=== PATIENT | female | born 1975 | race Caucasian/White ===

== ENCOUNTER 2017-06-28 08:13 | Day surgery (SDC) | payer BC ==
[~2017-06-28 08:13] MED LIST: Lactated Ringers 1,000 ML IV SCH; Lidocaine 1%/Sod Bicarbonate in NS 8.4% 1 ML Syringe IV PRN; Sodium Chloride 0.9% 10 ML Syringe FLUSH PRN
[2017-06-28] MEDS ORDERED: Ondansetron 4 MG/2 ML SDV ONE (08:36)
[2017-06-28] MEDS ORDERED: Midazolam 1 MG/ML 2 ML SDV ONE (08:36)
[2017-06-28] MEDS ORDERED: Propofol 200 MG/20 ML SDV ONE (08:36)
[2017-06-28] MEDS ORDERED: fentaNYL 250 MCG/5 ML SDV ONE (08:36)
[2017-06-28] MEDS ORDERED: ceFAZolin 1 GM Vial ONE (08:36)
[2017-06-28] MEDS ORDERED: Lidocaine 1% 4 ML ONE (08:37)
--- NOTE | 2017-06-28 08:45 | PCM.PREANE ---
Preanesthetic Assessment - Anesthesia/Transfusion/Family Hx Anesthesia History: Prior Anesthesia Without Reaction Family History of Anesthesia Reaction: No Transfusion History: No Prior Transfusion(s) - Review of Systems General: No Symptoms Pulmonary: No Symptoms Cardiovascular: No Symptoms Gastrointestinal: Abdominal Pain, Constipation Neurological: No Symptoms Other: Reports: None - Physical Assessment NPO Status Date: 06/27/17 NPO Status Time: 00:00 Pulse: 70 O2 Sat by Pulse Oximetry: 97 Respiratory Rate: 16 Blood Pressure: 120/85 Temperature: 36.5 C Height: 86.1 cm ASA Class: 2 Mental Status: Alert & Oriented x3 Dentition: Reports: Implants (TOP LEFT) Thyro-Mental Finger Breadths: 3 Mouth Opening Finger Breadths: 3 ROM/Head Extension: Full Lungs: Clear to Auscultation, Normal Respiratory Effort Cardiovascular: Regular Rate, Regular Rhythm, No Murmurs - Allergies Allergies/Adverse Reactions: Allergies Allergy/AdvReac Type Severity Reaction Status Date / Time No Known Allergies Allergy Verified 06/27/17 13:42 - Blood Blood Available: No Product(s) Available: None - Anesthesia Plan Pre-Op Medication Ordered: None - Acknowledgements Anesthesia Type Planned: General Anesthesia Pt an Appropriate Candidate for the Planned Anesthesia: Yes Alternatives and Risks of Anesthesia Discussed w Pt/Guardian: Yes Pt/Guardian Understands and Agrees with Anesthesia Plan: Yes PreAnesthesia Questionnaire HEENT History: Reports: Other (See Below) Other HEENT History: paranasal sinus congestion, dental implants, wears glasses Cardiovascular History: Reports: None Respiratory History: Reports: None Gastrointestinal History: Genitourinary History: Reports: None [employer] History: Reports: Other (See Below) Other OB/BYN History: irrregular heavy menses, vaginitis, vulvovaginitis Musculoskeletal History: Reports: None Neurological History: Reports: None Psychiatric History: Reports: Depression, Other (See Below) Other Psychiatric History: fatigue Endocrine/Metabolic History: Reports: None Hematologic History: Reports: None Immunologic History: Reports: None Oncologic (Cancer) History: Reports: None Dermatologic History: Reports: None - Past Surgical History Head Surgeries/Procedures: Reports: None HEENT Surgical History: Reports: Myringotomy w Tube(s), Oral Surgery, Tonsillectomy Cardiovascular Surgical History: Reports: None Respiratory Surgical History: Reports: None GI Surgical History: Reports: Bariatric Procedure, Cholecystectomy Female Surgical History: Reports: Tubal Ligation Male Surgical History: Reports: None Endocrine Surgical History: Reports: None Neurological Surgical History: Reports: None Musculoskeletal Surgical History: Reports: None Oncologic Surgical History: Reports: None Dermatological Surgical History: Reports: None - SUBSTANCE USE Smoking Status *Q: Current Every Day Smoker Days Per Week of Alcohol Use: 3 Number of Drinks Per Day: 2 Total Drinks Per Week: 6 Recreational Drug Use History: No - HOME MEDS Home Medications: Home Meds Ascorbic Acid [Vitamin C] 1,000 mg PO DAILY 06/27/17 [History] Multivitamin [Multi-Vitamin Daily] 1 tab PO DAILY 06/27/17 [History] - CURRENT (IN HOUSE) MEDS Current Meds: Current Medications Lactated Ringer's (Ringers, Lactated) 1,000 mls @ 125 mls/hr IV ASDIRECTED OPHELIA Stop: 06/28/17 23:00 Lidocaine/Sodium Bicarbonate (Buffered Lidocaine 1% In Ns 8.4%) 0.25 ml IV ONETIME PRN PRN Reason: Prior to IV Start Stop: 06/28/17 18:00 Sodium Chloride (Saline Flush) 10 ml FLUSH ASDIRECTED PRN PRN Reason: Keep Vein Open Stop: 06/28/17 18:00 Discontinued Medications Cefazolin Sodium (Ancef) Confirm Administered Dose 2 gm .ROUTE .STK-MED ONE Stop: 06/28/17 08:37 Fentanyl (Sublimaze) Confirm Administered Dose 250 mcg .ROUTE .STK-MED ONE Stop: 06/28/17 08:37 Lidocaine HCl (Xylocaine-Mpf 1%) Confirm Administered Dose 4 mls @ as directed .ROUTE .STK-MED ONE Stop: 06/28/17 08:38 Midazolam HCl (Versed 1 Mg/Ml) Confirm Administered Dose 2 mg .ROUTE .STK-MED ONE Stop: 06/28/17 08:37 Ondansetron HCl (Zofran) Confirm Administered Dose 4 mg .ROUTE .STK-MED ONE Stop: 06/28/17 08:37 Propofol (Diprivan 20 Ml) Confirm Administered Dose 200 mg .ROUTE .STK-MED ONE Stop: 06/28/17 08:37
--- NOTE | 2017-06-28 08:57 | PCM.OPNOTE ---
- General Post-Op/Procedure Note Date of Surgery/Procedure: 06/28/17 Operative Procedure(s): Dilatation and curettage and hysteroscopy 70222 Pre Op Diagnosis: Excessive irregular menstrual periods, heavy menses Post-Op Diagnosis: Same Anesthesia Technique: General ET Tube Primary Surgeon: Oseas Viramontes Anesthesia Provider: Vernon Potts Fluid Replacement, Intraop: 1,200 EBL in mLs: 5 Drain/Tube Comments:: None Complications: None Condition: Good Free Text/Narrative:: Patient taken to OR #3 and placed under general anesthesia with endotrachael intubation. SCD's in place and functioning, Ancef 2 grams IV preop. Prepared and draped in sterile fashion. Timeout performed, confirming name, , and procedure as D&C and Hysteroscopy. EUA normal anterior uterus. No adnexal masses. Uterus sounded to 8.5 cm, dilated to accomidate the hysteroscope. Endoscopy revealed no polyps. Both left and right tubal ostia were visualized. There was a significant amount of tissue endometrial cavity. Curettage performed all tissue sent to pathology for tissue evaluation patient received Toradol 30 mg IV. Patient transported postanesthesia care unit in satisfactory conditions the sponge counts were correct. One set of images taken 10 images total: Image 001 the right cornua and area of the tubal ostium Image 002 shows the left cornua but blurred due to blood in the saline Image 003 shows the right tubal ostia better view image 004 shows right tubal ostia Image 005 shows the fundus of the endometrial cavity Image 006 shows the right cornua after D&C Image 007 shows the left cornual area with significant amount of tissue is persisting Image 008 shows the left cornual area after curettage and removal of the additional tissue Image 009 shows the area of the right tubal ostia and cornea Image 010 shows the left tubal ostia and cornua
[2017-06-28] MEDS ORDERED: Ketorolac 30 MG/ML SDV ONE (09:12)
[2017-06-28] MEDS ORDERED: Lactated Ringers 1,000 ML ONE (09:38)
[2017-06-28] MEDS ORDERED: fentaNYL 100 MCG/2 ML SDV IVPUSH PRN (10:04)
[2017-06-28] MEDS ORDERED: HYDROmorphone 0.5 MG/0.5 ML Syringe IVPUSH PRN (10:04)
--- NOTE | 2017-06-28 10:06 | PCM.POSTAN ---
POST ANESTHESIA ASSESSMENT - MENTAL STATUS Mental Status: Alert, Oriented - VITAL SIGNS Pulse Rate: 75 SaO2: 95 Resp Rate: 12 Blood Pressure: 117/78 Temperature: 36.9 C - RESPIRATORY Respiratory Status: Respiratory Rate WNL, Airway Patent, O2 Saturation Stable, Supplemental Oxygen - CARDIOVASCULAR CV Status: Pulse Rate WNL, Blood Pressure Stable - GASTROINTESTINAL GI Status: No Symptoms - PAIN Pain Score: 0 - POST OP HYDRATION Hydration Status: Adequate & Stable - OBSERVATIONS Free Text/Narrative:: no anesthesia complications noted
== END 2017-06-28 11:05 | disposition home or self-care (01) ==
LOC: JD.SDS 08:13
PROVIDERS: ATTEND Obstetrics & Gynecology
DX: N85.8 Other specified noninflammatory disorders of uterus (principal); N76.0 Acute vaginitis; F17.210 Nicotine dependence, cigarettes, uncomplicated; F32.9 Major depressive disorder, single episode, unspecified; Z79.899 Other long term (current) drug therapy; Z90.89 Acquired absence of other organs; Z98.51 Tubal ligation status; Z98.890 Other specified postprocedural states
CPT/HCPCS: 36415; 58558; 84702; 85025; 86850; 86900; 86901; J0690; J1885; J2250; J2405; J3010; J7120; 00952; J2704